=== PATIENT | male | born 1990 | race Caucasian/White ===

== ENCOUNTER 2024-03-17 17:57 | Emergency (ER) | payer MEDICAID ==
[2024-03-25] MEDS ORDERED: HYDROmorphone 2 MG/ML Syringe ONE (21:50)
== END 2024-03-17 18:00 | disposition left against medical advice (07) ==
LOC: LB.ED 17:57
DX: Z53.21 Procedure and treatment not carried out due to patient leaving prior to being seen by health care provider (principal)